=== PATIENT | male | born 2000 | race Caucasian/White ===

== ENCOUNTER 2018-07-14 12:16 | Emergency (ER) | payer MEDICAID ==
[2018-07-14 12:24] VITALS: BP 146/85
--- NOTE | 2018-07-14 12:50 | ER Document Report ---
HPI - HPI Patient complains to provider of: Eye drainage Time Seen by Provider: 07/14/18 12:36 Onset: Yesterday Onset/Duration: Gradual Quality of pain: Burning Pain Level: 2 Context: Patient presents complaining of eye redness and drainage that started yesterday. Patient denies any glasses or contact lens use. Patient denies any injury to the eyes. Patient has had matting to the eye lashes. Mother is concerned about pinkeye. Associated Symptoms: Other - Eye drainage Exacerbated by: Denies Relieved by: Denies Similar symptoms previously: No Recently seen / treated by doctor: No - ROS ROS below otherwise negative: Yes Systems Reviewed and Negative: Yes All other systems reviewed and negative - EENT EENT: REPORTS: Eye problems - GASTROINTESTINAL Gastrointestinal: DENIES: Nausea, Patient vomiting - DERM Skin Color: Normal Skin Problems: None Past Medical History - General Information source: Patient - Social History Smoking Status: Never Smoker Frequency of alcohol use: None Drug Abuse: None Occupation: None Lives with: Family Family History: Reviewed & Not Pertinent Psychiatric Medical History: Reports: Hx Attention Deficit Hyperactivity Disorder Surgical Hx: Negative Vertical Provider Document - CONSTITUTIONAL Agree With Documented VS: Yes Exam Limitations: No Limitations General Appearance: WD/WN, No Apparent Distress - INFECTION CONTROL TRAVEL OUTSIDE OF THE [place] IN LAST 30 DAYS: No - HEENT HEENT: Conjuctival Injection - Bilateral, PERRLA Notes: Mucoid drainage matting eyelashes of bilateral eyes - NECK Neck: Normal Inspection, Supple. negative: Lymphadenopathy-Left, Lymphadenopathy-Right - RESPIRATORY Respiratory: Breath Sounds Normal, No Respiratory Distress, Chest Non-Tender - CARDIOVASCULAR Cardiovascular: Regular Rate, Regular Rhythm, No Murmur - MUSCULOSKELETAL/EXTREMETIES Musculoskeletal/Extremeties: MAEW - NEURO Level of Consciousness: Awake, Alert, Appropriate Motor/Sensory: No Motor Deficit - DERM Integumentary: Warm, Dry, No Rash Course - Re-evaluation Re-evalutation: 07/14/18 Patient with bilateral scleral injection with mucopurulent drainage matting the eyelashes. Patient's findings consistent with conjunctivitis, no history of trauma, no concern for any corneal abrasion or ulcer at this time. Patient denies any change in vision. - Vital Signs Vital signs: Temp Pulse Resp BP Pulse Ox 98.3 F 89 18 146/85 H 98 07/14/18 12:19 07/14/18 12:19 07/14/18 12:19 07/14/18 12:19 07/14/18 12:19 Discharge - Discharge Clinical Impression: Conjunctivitis Qualifiers: Conjunctivitis type: unspecified Laterality: bilateral Qualified Code(s): H10.9 - Unspecified conjunctivitis Condition: Stable Disposition: HOME, SELF-CARE Instructions: Conjunctivitis ([facility]), Eyedrop Use ([facility]) Additional Instructions: Return immediately for any new or worsening symptoms Followup with your primary care provider, call tomorrow to make a followup appointment Follow-up with ophthalmology for any persistent problems Good handwashing Prescriptions: Polymyxin B Sulfate/Tmp [Polytrim Oph Soln 10 ml] 1 drop BTH_EYE ASDIR #1 bottle Forms: Return to School Referrals: JOANA HOPKINS MD [Primary Care Provider] - Follow up as needed [facility]ICE [facility] [Provider Group] - Follow up as needed
== END 2018-07-14 13:10 | disposition home or self-care (01) ==
LOC: ER 12:16
DX: H10.9 Unspecified conjunctivitis (principal)
CPT/HCPCS: 99283